=== PATIENT | male | born 1960 | race Caucasian/White ===

== ENCOUNTER 2018-06-08 13:49 | Emergency (ER) ==
--- OUTSIDE RECORDS SUMMARY | 2018-06-08 13:52 | XMS REPORT | Clinical Summary ---
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 Active Problems Problem Noted Date Right hip tendinitis 11/25/2017 DDD (degenerative disc disease), lumbar 11/25/2017 Greater trochanteric bursitis of right hip 11/25/2017 Right hip pain 11/25/2017 Pain in both hands 08/26/2017 Right wrist pain 08/26/2017 Bilateral carpal tunnel syndrome 08/26/2017 Cubital tunnel syndrome, bilateral 08/26/2017 Abdominal pain 05/18/2015 Moderate depressive episode 05/18/2015 Allen eye disease 05/18/2015 Shoulder pain 05/18/2015 Sinusitis 05/18/2015 Encounters Care Team Description Date Type Specialty Rene Paniagua MD Chronic pain of right thumb 12/08/2017 Hospital Radiology Encounter Radu Rey MD Right hip pain (Primary Dx); Greater trochanteric bursitis of right hip; DDD (degenerative disc disease), lumbar; Right hip tendinitis 11/24/2017 Office Visit Orthopedic Surgery Rene Paniagua MD Pain in both hands (Primary Dx); Chronic pain of right thumb 11/23/2017 Office Visit Orthopedic Surgery Radu Rey MD Pain in both hands (Primary Dx); Right wrist pain; Bilateral carpal tunnel syndrome; Cubital tunnel syndrome, bilateral 08/25/2017 Office Visit Orthopedic Surgery after 06/07/2017 Family History Medical History Relation Name Comments Heart disease Brother Heart disease Father Ulcers Father Cancer Mother Rheum arthritis Mother Relation Name Status Comments Brother Father Mother Social History Date Tobacco Use Types Packs/Day Years Used Former Smoker Smokeless Tobacco: Never Used Alcohol Use Drinks/Week oz/Week Comments Yes Sex Assigned at Date Recorded Not on file Industry Job Start Date Occupation Not on file Not on file Not on file Travel End Travel History Travel Start No recent travel history available. Last Filed Vital Signs Time Taken Vital Sign Reading - Blood Pressure - - Pulse - - Temperature - - Respiratory Rate - - Oxygen Saturation - - Inhaled Oxygen - Concentration 11/24/2017 2:11 PM CDT Weight 86.2 kg (190 lb) 11/24/2017 2:11 PM CDT Height 182.9 cm (6') 11/24/2017 2:11 PM CDT Body Mass Index 25.77 Plan of Treatment Health Maintenance Due Date Last Done Comments COLON CANCER SCREENING 2010 SHINGLES VACCINES (#1) 2010 INFLUENZA VACCINE 10/13/2017 Procedures Comments Procedure Name Priority Date/Time Associated Diagnosis MRI UPPER EXTREMITY WO Routine 12/08/2017 Chronic pain of right CONTRAST RIGHT 7:27 PM CDT thumb XR LUMBAR SPINE 2 OR 3 VW Routine 11/24/2017 Right hip pain 2:43 PM CDT XR HIP 2-3 VIEWS RIGHT Routine 11/24/2017 Right hip pain 2:19 PM CDT XR HANDS 3 VW BILATERAL Routine 08/25/2017 Pain in both hands 4:12 PM CDT after 06/07/2017 Results * MRI Upper Extremity Wo Contrast Right (12/08/2017 7:27 PM CDT) Narrative Performed At [facility] EXAMINATION:MRI UPPER EXTREMITY WO CONTRAST RIGHT CLINICAL HISTORY:M79.644 Pain in right finger(s), G89.29 Other chronic pain, evalute for chronic ucl tear COMPARISON:X-ray dated 08/25/2017 TECHNIQUE: Multisequence multiplanar MRI of the right thumb was performed without contrast. Collateral ligament protocol was utilized. FINDINGS: The ulnar collateral ligament as well as radial pleural ligament of the thumb are degenerated although intact. These appear lax with proximal fibers being attenuated. Distal fibers are thickened and degenerated. Osteoarthritis at the first metacarpal phalangeal joint. Severe osteoarthritis at the first CMC joint with prominent bone marrow edema, bone on bone contact and subluxation with findings: Instability. Degenerative edema in the base of the first metacarpal as well as trapezium. Flexor and extensor tendons intact. No muscle strains. IMPRESSION: 1.Chronic sprain and degeneration of the ulnar and radial collateral ligaments with ligamentous laxity and ligament degeneration. 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 Procedure Note Interface, Radiology Results - 12/08/2017 7:48 PM CDT EXAMINATION: MRI UPPER EXTREMITY WO CONTRAST RIGHT CLINICAL HISTORY: M79.644 Pain in right finger(s), G89.29 Other chronic pain, evalute for chronic ucl tear COMPARISON: X-ray dated 08/25/2017 TECHNIQUE: Multisequence multiplanar MRI of the right thumb was performed without contrast. Collateral ligament protocol was utilized. FINDINGS: The ulnar collateral ligament as well as radial pleural ligament of the thumb are degenerated although intact. These appear lax with proximal fibers being attenuated. Distal fibers are thickened and degenerated. Osteoarthritis at the first metacarpal phalangeal joint. Severe osteoarthritis at the first CMC joint with prominent bone marrow edema, bone on bone contact and subluxation with findings: Instability. Degenerative edema in the base of the first metacarpal as well as trapezium. Flexor and extensor tendons intact. No muscle strains. IMPRESSION: 1. Chronic sprain and degeneration of the ulnar and radial collateral ligaments with ligamentous laxity and ligament degeneration. 2. 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 Performing Organization Address City/State/[place] Phone Number [facility] [address] [place] [address] * XR Lumbar Spine 2 Or 3 Vw (11/24/2017 2:43 PM CDT) Narrative Performed At [facility] Vena cava filter, list to the right secondary to degenerative disc disease.Diffuse degenerative changes at multiple levels with marked narrowing of L5-S1 with spurring. Performing Organization Address City/[facility] Phone Number [facility] [address] [place] [address] * XR Hip 2-3 View Right (11/24/2017 2:19 PM CDT) Narrative Performed At [facility] Mild degenerative changes consistent with his age Performing Organization Address City/State/Zipcode Phone Number [facility] [address] [place] [address] * XR Hands 3 Vw Bilateral (08/25/2017 4:12 PM CDT) Narrative Performed At [facility] Left hand shows degenerative changes in the carpometacarpal joint of the thumb.He has degenerative changes of the distal radioulnar joint.On the right he has degenerative changes of the thumb carpometacarpal joint. Performing Organization Address [facility]/Zipcode Phone Number [facility] [address] [place] [address] after 06/07/2017 Insurance Payer Benefit Subscriber ID Type Phone Address Plan / Group UHC MEDICARE AARP xxxxxxxxx [facility] MEDICARE COMPLETE [facility] Advance Directives Patient has advance care planning documents on file. For more information, katy ocampo contact: Jamarcus Collado [address] [place] [address]
--- OUTSIDE RECORDS SUMMARY | 2018-06-08 13:52 | XMS REPORT | Continuity of Care Document ---
Author Author [facility] Organization Interface Address Unknown Phone Unavailable Problems Problem Status Onset Date Classification Date Reported Comments Source Medications Medication Details Route Status Patient Instructions Ordering Provider Order Date Source Allergies, Adverse Reactions, Alerts Substance Category Reaction Severity Reaction type Status Date Reported Comments Source Immunizations Immunization Date Given Site Status Last Updated Comments Source Results Order Name Results Value Reference Range Date Interpretation Comments Source Vital Signs Vital Sign Value Date Comments Source Encounters Location Location Details Encounter Type Encounter Number Reason For Visit Attending Provider ADM Date DC Date Status Source Outpatient [id number] DANIEL HARRIS 07/29/2016 Active [facility] [id number] DNAIEL HARRIS 08/12/2016 Active [facility] [id number] RENETTA HANNA GBITO 01/25/2017 Active [facility] [id number] DANIEL HARRIS 01/25/2017 Active [facility] [id number] AKUVI ELHOLana GBITO 02/16/2017 Active [facility] [id number] DANIEL HARRIS 04/19/2017 Active [facility] [id number] DANIEL HARRIS 06/09/2017 Active [facility] [id number] ANTWON MONA 08/19/2017 Active [facility] [id number] CHERYL ELAINE 09/24/2017 Active [facility] [id number] ANTWON MONA 10/26/2017 Active [facility] [id number] ANNIE NITISH 10/27/2017 Active [facility] [id number] NATWON MONA 11/02/2017 Active [facility] [id number] DANIEL HARRIS 11/09/2017 Active [facility] [id number] ANTWON MONA 02/24/2018 Active [facility] [id number] DANIEL HARRIS 05/17/2018 Active [facility] [id number] Daniel Harris 06/09/2018 Active [facility] Procedures Procedure Code Date Perfomer Comments Source
== END 2018-06-08 14:23 | disposition left against medical advice (07) ==
LOC: FSED 13:49
DX: Z53.21 Procedure and treatment not carried out due to patient leaving prior to being seen by health care provider (principal)